=== PATIENT | female | born 1960 | race Two or more races ===

== ENCOUNTER 2022-09-11 05:55 | Day surgery (SDC) | payer OTHER ==
[~2022-09-11] VITALS: Ht 149.9 cm; Wt 62.6 kg
[~2022-09-11 05:55] MED LIST: ALPRAZOLAM XR0.5 MG PO; BENTYL10 MG/ML; CLIDINIUM W-CDP1 CAP; DULOXETINE HCL30 MG PO; IMODIUM A-D2 M2 PO; IMODIUM A-D2 MG; IMODIUM A-D2 MG PO; KETO10TA2 PO; LEVSIN/SL0.125 MG SL; LODINE XL500 MG PO; ORPH100T PO; PEPCID40 MG PO; PROBIOTIC1 EAC4 PO; PROLIA60 MG/1 ML SUBCUTANEO; RISPERDAL0.5 MG PO; TESSALON PERLE100 MG PO; TUSSI PRES-B L120 M1 PO; VOLTAREN100 GM TP; ZOFRAN4 MG PO
[2022-09-11] MEDS ORDERED: IBU600 MG PO (09:47)
== END 2022-09-11 15:20 | disposition home or self-care (01) ==
LOC: CIR.AMB 05:55
PROVIDERS: ATTEND Obstetrics & Gynecology Gynecology
DX: N85.00 Endometrial hyperplasia, unspecified (principal); R93.89 Abnormal findings on diagnostic imaging of other specified body structures; Z20.822 Contact with and (suspected) exposure to COVID-19

== ENCOUNTER 2025-02-06 07:13 | Outpatient (CLI) | payer OTHER ==
[~2025-02-06 07:13] MED LIST changes: +IBU600 MG PO
== END 2025-02-06 07:26 | disposition home or self-care (01) ==
LOC: TOM 07:13
DX: K86.2 Cyst of pancreas (principal); K50.813 Crohn's disease of both small and large intestine with fistula; K50.00 Crohn's disease of small intestine without complications